=== PATIENT | male | born 1935 | race Caucasian/White ===

== ENCOUNTER 2017-07-13 11:53 | Observation (INO) ==
[2017-07-13 12:32] LABS: Basophils % 0.8 %; Eosinophils # 0.2 K/mcL (0.0-0.6); Eosinophils % 3.3 %; Hematocrit 43.1 % (37.5-50.1); Hemoglobin 14.6 g/dL (12.9-16.9); Immature Granulocytes % 0.6 % (0-4); Lymphocytes % 40.9 %; Mean Corpuscular HGB Conc 33.9 g/dL (31.6-35.5); Mean Corpuscular Hemoglobin 31.9 pg (28.0-33.3); Mean Corpuscular Volume 94.1 fL (83.0-100.0); Mean Platelet Volume 9.3 fL (9.4-12.4); Monocytes # 0.6 K/mcL (0.0-1.3); Monocytes % 13.1 %; Platelet Count 143 K/mcL (140-400); Red Blood Count 4.58 M/mcL (4.19-5.50); Red Cell Distribution Width 13.6 % (11.5-14.5); Segmented Neutrophils % 41.3 %
[2017-07-13] MEDS ORDERED: Aspirin 325 MG TABLET PO ONE (12:38)
[2017-07-13 12:41] LABS: BUN/Creatinine Ratio 10 (6-26); Blood Urea Nitrogen 12 mg/dL (8-26); Calcium 9.6 mg/dL (8.6-10.8); Carbon Dioxide 26 mEq/L (19-29); Chloride 101 mEq/L (98-109); Glucose 192 mg/dL (70-99); Osmolality,Calculated 287 (280-300); Potassium 4.6 mEq/L (3.5-4.5); Sodium 136 mEq/L (136-145); eGFR For African Americans > 60 (> 60); eGFR For Non-African Americans 56 (> 60)
--- NOTE | 2017-07-13 13:06 | Emergency Department Note ---
Disposition Clinical Impression: Chest pain Qualifiers: Chest pain type: unspecified Qualified Code(s): R07.9 - Chest pain, unspecified Disposition: Admitted As Inpatient Condition: Undetermined Referrals: NONE,PCP [Non-Partnered Physician] - Forms: ED Satisfaction Letter Time of Disposition: 13:31 Chest Pain HPI - General Chief Complaint: ED Chest Pain Stated Complaint: chest pain Time Seen by Provider: 07/13/17 12:23 Source: patient, family Mode of arrival: ambulatory Limitations: no limitations Vital Signs Reviewed: Yes Nursing Notes Reviewed: Yes - History of Present Illness HPI Narrative: 81-year-old male with history of bipolar disorder arrives to [facility] emergency department with complaint of right-sided chest discomfort. The patient states this started roughly 1 day ago and has been intermittent. He has no associated symptoms with it. The patient states the pain does not radiate anywhere else. The patient denies any shortness of breath , nausea, jaw pain, right upper extremity or left upper surety pain. The patient states that he was sitting on his couch when it started. He describes it as a little bit of an achy sensation. He states it is a been intermittent as well. The patient denies any other complaints at this time. No previous history of TN, no hypertension, no hyperlipidemia, no diabetes, nonsmoker. Pt complaint: chest pain Onset (ago): day(s) (1) Duration: intermittent Onset: during rest Pain Location: right chest Severity: mild Severity scale (1-10): 3 Quality: aching Pain Radiation: none Improves with: nothing Worsens with: nothing Associated symptoms: Denies: nausea, vomiting, diaphoresis, dyspnea, syncope, palpitations, fever, cough, leg swelling Treatments prior to arrival chest pain: none - Related Data On Oral Contraceptives: No Home Medications Medication Instructions Recorded Confirmed Quetiapine Fumarate [Seroquel] 400 mg PO BID 04/08/15 05/10/15 Divalproex (24 HR) [Depakote ER 750 mg PO HS 05/10/15 05/10/15 (24 HR)] Allergies Allergy/AdvReac Type Severity Reaction Status Date / Time acetaminophen [From Tylenol] Allergy Rash Verified 04/08/15 16:22 All systems ED: reviewed and negative except as stated. Constitutional: Denies: fever, chills, weakness ENT ED: Denies: congestion Cardiovascular: Reports: chest pain. Denies: edema, syncope Respiratory: Denies: cough, dyspnea, wheezes Gastrointestinal: Denies: abdominal pain, nausea, vomiting Genitourinary: Denies: urgency, dysuria Musculoskeletal: Denies: back pain, neck pain, arthralgia, myalgia Integumentary: Denies: rash Neurological: Denies: headache, weakness, confusion Chest Pain PMH - Past Medical History Medical history: Reports: no medical history Surgical history: Reports: appendectomy, cholecystectomy Psychiatric history: Reports: bipolar, schizophrenia - Social History Smoking Status: Never smoker Alcohol use: Reports: none Drug use: Reports: none Physical Exam - General Limitations: no limitations General appearance: alert, in no apparent distress - Head Head exam: atraumatic, normocephalic, normal inspection - Eye Eye exam: Present: normal appearance, PERRL, EOMI - ENT ENT exam: normal exam, normal oropharynx, mucous membranes moist - Neck Neck exam: Present: normal inspection, full ROM, trachea midline - Chest Chest inspection: Present: normal inspection, symmetric chest wall rise - Respiratory Respiratory exam: Present: normal lung sounds bilaterally - Cardiovascular Cardiovascular exam: Present: regular rate, normal rhythm, normal heart sounds - Abdominal Exam Abdominal exam: Present: soft, Non-Tender. Absent: tenderness, distention, guarding, rebound, rigidity - Extremities Exam Extremities exam: Present: normal inspection, full ROM. Absent: tenderness, pedal edema - Neurological Exam Neurological exam: Present: alert, oriented X3, CN II-XII intact, normal gait - Expanded Neurological Exam Coma Scale Eye Opening: Spontaneous Coma Scale Motor Response: Obeys Commands Coma Scale Verbal Response: Oriented Coma Scale Total: 15 Course Vital Signs Temperature 98.3 F 07/13/17 11:55 Pulse Rate 76 07/13/17 11:55 Respiratory Rate 20 07/13/17 11:55 Blood Pressure 145/84 07/13/17 11:55 O2 Sat by Pulse Oximetry 98 07/13/17 11:55 Temperature 98.3 F 07/13/17 11:55 Pulse Rate 67 07/13/17 12:43 Respiratory Rate 16 07/13/17 12:43 Blood Pressure 150/84 07/13/17 12:43 O2 Sat by Pulse Oximetry 96 07/13/17 12:43 Oxygen Delivery Oxygen Delivery Room Air Chest Pain - MDM Narrative Medical decision making narrative: Workup in the emergency department demonstrates no acute process. I am concerned about the patient's chest pain as it was relieved with nitroglycerin. He had a pretty good story about what is going on and I will admit the patient to the hospitalist service for ACS rule out. The patient was made aware and agrees to plan. Accepted by Dr. Streeter. - Lab Data Lab results reviewed: Yes I reviewed the patient's lab results. Result diagrams: 07/13/17 12:21 07/13/17 12:21 Lab Results 07/13/17 07/13/17 07/13/17 Range/Units 12:21 12:21 12:21 WBC 4.8 (4.3-11.1) K/mcL RBC 4.58 (4.19-5.50) M/mcL Hgb 14.6 (12.9-16.9) g/dL Hct 43.1 (37.5-50.1) % MCV 94.1 (83.0-100.0) fL MCH 31.9 (28.0-33.3) pg MCHC 33.9 (31.6-35.5) g/dL RDW 13.6 (11.5-14.5) % Plt Count 143 (140-400) K/mcL MPV 9.3 L (9.4-12.4) fL Immature Gran % 0.6 (0-4) % Seg Neutrophils % 41.3 % Lymphocytes % 40.9 % Monocytes % 13.1 % Eosinophils % 3.3 % Basophils % 0.8 % Neutrophils # 2.0 (1.6-8.9) K/mcL Lymphocytes # 2.0 (0.6-4.6) K/mcL Monocytes # 0.6 (0.0-1.3) K/mcL Eosinophils # 0.2 (0.0-0.6) K/mcL Basophils # 0.0 (0.0-0.2) K/mcL Sodium 136 (136-145) mEq/L Potassium 4.6 H (3.5-4.5) mEq/L Chloride 101 (98-109) mEq/L Carbon Dioxide 26 (19-29) mEq/L BUN 12 (8-26) mg/dL Creatinine 1.24 (0.72-1.25) mg/dL Est GFR ( Amer) > 60 (> 60) Est GFR (Non-Af Amer) 56 L (> 60) BUN/Creatinine Ratio 10 (6-26) Glucose 192 H (70-99) mg/dL Calculated Osmolality 287 (280-300) Calcium 9.6 (8.6-10.8) mg/dL Troponin I 0.01 (0-0.03) ng/mL B-Natriuretic Peptide (0-100) pg/mL 07/13/17 Range/Units 12:21 WBC (4.3-11.1) K/mcL RBC (4.19-5.50) M/mcL Hgb (12.9-16.9) g/dL Hct (37.5-50.1) % MCV (83.0-100.0) fL MCH (28.0-33.3) pg MCHC (31.6-35.5) g/dL RDW (11.5-14.5) % Plt Count (140-400) K/mcL MPV (9.4-12.4) fL Immature Gran % (0-4) % Seg Neutrophils % % Lymphocytes % % Monocytes % % Eosinophils % % Basophils % % Neutrophils # (1.6-8.9) K/mcL Lymphocytes # (0.6-4.6) K/mcL Monocytes # (0.0-1.3) K/mcL Eosinophils # (0.0-0.6) K/mcL Basophils # (0.0-0.2) K/mcL Sodium (136-145) mEq/L Potassium (3.5-4.5) mEq/L Chloride (98-109) mEq/L Carbon Dioxide (19-29) mEq/L BUN (8-26) mg/dL Creatinine (0.72-1.25) mg/dL Est GFR ( Amer) (> 60) Est GFR (Non-Af Amer) (> 60) BUN/Creatinine Ratio (6-26) Glucose (70-99) mg/dL Calculated Osmolality (280-300) Calcium (8.6-10.8) mg/dL Troponin I (0-0.03) ng/mL B-Natriuretic Peptide < 10 (0-100) pg/mL - Radiology Data Radiology results reviewed: Yes I reviewed the patient's radiology results. - EKG Data EKG attestation: Yes I reviewed and interpreted this EKG. EKG results narrative: Heart rate 74 bpm. WI interval 174 ms. QTC 394 ms. No sinus rhythm. No ST elevation or ST depression noted. EKG similar appearance to EKG from 2014. Heart Score - Score History: Moderately Suspicious EKG: Non Specific repolarisation Disturbance Age: Greater than 65 Risk Factors: No risk factors known Troponin: Less than normal limit HEART Score Total: 4 Attestation Statement - Attestation Attestation: I examined this patient and my medical decision-making was reviewed with the Resident Physician, Dr. Braga. I agree with the documented findings, disposition and treatment plan as described except to the extent set forth below. Patient is a 81-year-old white male with a history of bipolar disorder who presents to the emergency department today with a one-day history of intermittent gradually worsening right-sided chest discomfort. Patient states the pain radiates into his right shoulder and denies any other associated symptoms with this pain. Patient states actually began last night has been intermittent, kept him awake off and on throughout the night, and then worsened significantly while he was in [place] this morning. Patient has never had chest pain in the past denies any cardiac history or testing. I agree with the patient's physical exam findings as documented. Vital signs are stable. EKG shows nonspecific changes in the inferior leads. No significant change from prior EKG in system. Labs including troponin were all within normal limits, a chest x-ray was unremarkable, and patient is pain-free after aspirin and nitroglycerin. Patient 's heart score equals 4, I feel patient would benefit from hospitalization for further evaluation and management. Case was discussed with the hospitalist who accepted the patient for admission.
[2017-07-13] MEDS: Nitroglycerin 0.4 MG TAB.SUBL SL PRN ×2 (13:15→13:26)
--- NOTE | 2017-07-13 13:48 | Internal Med History&Physical ---
Date of Encounter: 07/13/17 Time of Encounter: 13:45 Assessment and Plan (1) Hyperlipidemia Current visit: Yes Status: Chronic chrnic will start on lipitor Qualifiers: Hyperlipidemia type: pure hypercholesterolemia Qualified Code(s): E78.00 - Pure hypercholesterolemia, unspecified; E78.0 - Pure hypercholesterolemia (2) Schizophrenia Current visit: Yes Status: Chronic chronic will resume home meds Qualifiers: Schizophrenia type: unspecified Qualified Code(s): F20.9 - Schizophrenia, unspecified (3) Bipolar 1 disorder Current visit: Yes Status: Chronic chronic resume mhome meds (4) Chest pain Current visit: Yes Status: Acute chest pain ekg and troponin so far negative echo and nuclear stress in am Qualifiers: Chest pain type: unspecified Qualified Code(s): R07.9 - Chest pain, unspecified Internal Medicine - H&P: HPI Chief complaint: chest pain Admitted From: Emergency Dept Plans for Post Hospital Care: Home History of present illness: Mr. Hong is a 81 year old male Patient with history of bipolar disorder, schizophrenia, high cholesterol, previous ER evaluation for psychiatric issues. Patient presented to the emergency room with symptoms of right-sided chest pain describes this chest pain started yesterday . says kkept him awake through the night . started again this morning and taken to the emergency room. No radiation mostly on the right side no shortness of breath no palpitationb no prior cardiac event history. EKG in the ER is normal troponin so far is negative Past Med Surg Social Fam HX - Past Medical History Medical history: hyperlipidemia Psychiatric history: bipolar, schizophrenia - Past Surgical History Surgical History: appendectomy, cholecystectomy - Social History Smoking Status: Never smoker Smokeless Tobacco Status: No Alcohol use: none Drug use: none Internal Medicine - H&P: Meds Quetiapine Fumarate [Seroquel] 400 mg PO HS 04/08/15 [History] Divalproex (24 HR) [Depakote ER (24 HR)] 250 mg PO BID 05/10/15 [History] Aspirin 81 mg PO DAILY 07/13/17 [History] Benztropine [Cogentin] 0.5 mg PO HS 07/13/17 [History] Calcium Carbonate [Calcium] 500 mg PO DAILY 07/13/17 [History] Docusate Sodium [Dok] 100 mg PO DAILY 07/13/17 [History] Mv,Ca,Fe,Min/FA/Guarana/Caff [One Daily Tablet] 1 tab PO DAILY 07/13/17 [History ] [place]-3/Dha/Epa/Fish Oil [Fish Oil 1,000 mg Softgel] 1 tab PO DAILY 07/13/17 [ History] 3 Allergy/AdvReac Type Severity Reaction Status Date / Time acetaminophen [From Tylenol] Allergy Rash Verified 04/08/15 16:22 risperidone [From Risperdal] AdvReac Joint Pain Verified 07/13/17 13:41 All Systems PM: A 10-system review of systems was performed and is negative for pertinent findings except as documented above in the HPI. - Constitutional Constitutional: no chills, no fever(s), no night sweats - EENT Eyes: no change in vision, no discharge, no pain, no photophobia Nose, mouth and throat: no dysphagia, no nasal discharge, no neck pain, no sore throat - Cardiovascular Cardiovascular ROS IM: no chest pain, no diaphoresis, no dyspnea, no lightheadedness, no palpitations, no syncope - Respiratory Respiratory: no cough, no dyspnea, no wheezing, no excessive phlegm production - Gastrointestinal Gastrointestinal: no abdominal pain, no diarrhea, no hematemesis, no hematochezia, no melena, no nausea, no vomiting - Musculoskeletal Musculoskeletal ROS IM: no numbness, no tingling - Constitutional Vitals: Temp Pulse Resp BP Pulse Ox 98.3 F 68 16 110/66 95 07/13/17 11:55 07/13/17 13:34 07/13/17 13:34 07/13/17 13:34 07/13/17 13:34 - Eye Eye exam: Present: PERRL, conjuntiva pink, sclera anicteric Pupils: Present: PERRL - Neck Neck exam general surgery: Present: supple, trachea midline. Absent: lymphadenopathy - Respiratory Respiratory exam: Present: CTAB. Absent: accessory muscle use, rales, rhonchi, wheezes - Cardiovascular Cardiovascular exam: Present: RRR, +S1, +S2. Absent: diastolic murmur, gallop, rubs, systolic murmur - GI/Abdominal GI/Abdominal exam: Present: normal bowel sounds, soft, no peritoneal signs. Absent: distended, tenderness - Extremities Exam Extremities exam: Present: warm, radial pulses palpable and symmetrical. Absent : calf tenderness, cyanotic, pedal edema - Neurological Exam Neurological exam: Present: CN II-XII intact, oriented X3, no focal deficits. Absent: pronater drift, facial droop, speech deficit Internal Med - H&P Results - Labs CBC & Chem 7: 07/13/17 12:21 07/13/17 12:21 Labs: Short CBC 07/13/17 Range/Units 12:21 WBC 4.8 (4.3-11.1) K/mcL Hgb 14.6 (12.9-16.9) g/dL Hct 43.1 (37.5-50.1) % Plt Count 143 (140-400) K/mcL Neutrophils # 2.0 (1.6-8.9) K/mcL BMP 07/13/17 12:21 Sodium 136 Potassium 4.6 H Chloride 101 Carbon Dioxide 26 BUN 12 Creatinine 1.24 Glucose 192 H Calcium 9.6 Cardiac Enzymes 07/13/17 Range/Units 12:21 Troponin I 0.01 (0-0.03) ng/mL - Impressions ITS Impressions Chest X-Ray 07/13/17 12:03 IMPRESSION: Negative portable study. D/ / Brianna Cardona Cha, MD / Brianna Cardona Cha, MD Interpreting Provider: Brianna Cardona Cha, MD
[2017-07-13] MEDS ORDERED: Naloxone 0.4 MG/ML INJ IVP PRN (13:58)
[2017-07-13] MEDS ORDERED: Ondansetron 4 MG/2 ML VIAL IVP PRN (13:58)
[2017-07-13] MEDS ORDERED: *HR* Morphine 2 MG/ML SYRINGE IVP PRN (13:58)
[2017-07-13] MEDS: 0.9 % Sodium Chloride 1,000 ML IVC SCH (16:03)
[2017-07-13] MEDS: Divalproex (24 HR) 250 MG TABLET PO SCH (20:07)
[2017-07-13] MEDS ORDERED: NON-FORMULARY MEDICATION 1 EACH EACH (Quetiapine Fumarate [Seroquel] 400 MG) PO SCH (21:00)
[2017-07-14 03:17] LABS: Alanine Aminotransferase 81 Units/L (0-55); Albumin/Globulin Ratio 0.8 (1.1-2.2); Alkaline Phosphatase 76 Units/L (38-126); Aspartate Amino Transferase 41 Units/L (5-34); BUN/Creatinine Ratio 12 (6-26); Bilirubin,Total 0.5 mg/dL (0.2-1.2); Blood Urea Nitrogen 13 mg/dL (8-26); Carbon Dioxide 27 mEq/L (19-29); Chloride 105 mEq/L (98-109); Globulin 3.7 g/dL (2.4-3.5); Glucose 172 mg/dL (70-99); Osmolality,Calculated 292 (280-300); Potassium 4.7 mEq/L (3.5-4.5); Sodium 139 mEq/L (136-145); Total Protein 6.7 g/dL (6.0-8.3); eGFR For African Americans > 60 (> 60); eGFR For Non-African Americans > 60 (> 60)
[2017-07-14] MEDS: 0.9 % Sodium Chloride 1,000 ML IVC SCH (04:57)
[2017-07-14] MEDS ORDERED: Regadenoson 0.4 MG/5 ML SYRINGE IVP ONE (06:38)
[2017-07-14] MEDS ORDERED: (Omega-3/Dha/Epa/Fish Oil [Fish Oil 1,000 Mg Softgel] PO SCH (09:00)
[2017-07-14] MEDS ORDERED: Aspirin 81 MG TAB.CHEW PO SCH (09:00)
[2017-07-14] MEDS ORDERED: Multivit/Ca/Min/Fe/FA 1 TAB TABLET PO SCH (09:00)
[2017-07-14] MEDS: Divalproex (24 HR) 250 MG TABLET PO SCH (09:11)
[2017-07-14 11:26] VITALS: BP 143/88
--- NOTE | 2017-07-14 13:30 | Discharge Summary ---
Date of Encounter: 07/14/17 Time of Encounter: 13:45 - Discharge Diagnosis (1) Chest pain Priority: Primary Status: Resolved Qualifiers: Chest pain type: unspecified Qualified Code(s): R07.9 - Chest pain, unspecified (2) Bipolar 1 disorder Priority: Secondary Status: Chronic (3) Hyperlipidemia Priority: Secondary Status: Chronic Qualifiers: Hyperlipidemia type: pure hypercholesterolemia Qualified Code(s): E78.00 - Pure hypercholesterolemia, unspecified; E78.0 - Pure hypercholesterolemia (4) Schizophrenia Priority: Secondary Status: Chronic Qualifiers: Schizophrenia type: unspecified Qualified Code(s): F20.9 - Schizophrenia, unspecified - Discharge Medications Home Medications: Quetiapine Fumarate [Seroquel] 400 mg PO HS 04/08/15 [History] Divalproex (24 HR) [Depakote ER (24 HR)] 250 mg PO BID 05/10/15 [History] Aspirin 81 mg PO DAILY 07/13/17 [History] Benztropine [Cogentin] 0.5 mg PO HS 07/13/17 [History] Calcium Carbonate [Calcium] 500 mg PO DAILY 07/13/17 [History] Docusate Sodium [Dok] 100 mg PO DAILY 07/13/17 [History] Mv,Ca,Fe,Min/FA/Guarana/Caff [One Daily Tablet] 1 tab PO DAILY 07/13/17 [History ] [place]-3/Dha/Epa/Fish Oil [Fish Oil 1,000 mg Softgel] 1 tab PO DAILY 07/13/17 [ History] Allergies/Adverse Reactions: 3 Allergy/AdvReac Type Severity Reaction Status Date / Time acetaminophen [From Tylenol] Allergy Rash Verified 04/08/15 16:22 risperidone [From Risperdal] AdvReac Joint Pain Verified 07/13/17 13:41 Procedures/tests Complete & Pending: Procedures Performed prior 72 hours Category Date Time Status NM cecil perf SPECT multi [NM] Routine Exams 07/13/17 14:04 Taken EV echocardiogram Routine Y 07/14/17 14:03 Completed SP pharm nuclear stress Routine Y 07/14/17 14:03 Completed Date of admission: 07/13/17 14:01 Primary care physician: Kamryn Davison CNP Discharging clinician: Dolly Rodrigez Anticipated date of discharge: 07/14/17 - Patient Status Disposition: Home, Self-Care Condition: Good Functional capacity at discharge: independent ambulation Overall status at discharge: patient is back to baseline - Discharge Instructions Follow Up With: Kamryn Davison, YOEL [Primary Care Provider] - 07/22/17 3:30 pm Additional Instructions: Please follow up with your primary care physician within one week after your discharge from the hospital. Please resume all other medications as prescribed by your primary care physician. - Diet and Activity Activity: increase activity as tolerated Diet: low fat, low cholesterol, low salt diet Hospital course: Mr. Hong is a 81 year old male with PMH of bipolar disorder, schizophrenia, hld admitted for chest pain. She underwent nuclear stress test which was negative for ischemic perfusion defect. Upon further questioning, pt reported of recently lifting a heavy couch and has been having right sided chest pain that is reproducible with palpation. He is currently chest pain free. Nuclear stress test negative for any ischemia. He is stable for discharge. Pt to follow up with primary care physician after discharge. - Time Spent with Patient Total time spent providing and/or coordinating discharge services: Less than 30 minutes - Constitutional Vitals: Temp Pulse Resp BP Pulse Ox 97.9 F 62 16 143/88 96 07/14/17 11:22 07/14/17 11:22 07/14/17 11:22 07/14/17 11:22 07/14/17 11:22 General appearance: Present: cooperative, A&O X 3, pleasant, no acute distress, answers questions appropriately - Head Head exam: Present: atraumatic, normocephalic - Eye Eye exam: Present: conjuntiva pink, sclera anicteric - Respiratory Respiratory exam: Present: CTAB. Absent: accessory muscle use, rales, rhonchi, wheezes - Cardiovascular Cardiovascular exam: Present: RRR, +S1, +S2. Absent: diastolic murmur, gallop, rubs, systolic murmur - GI/Abdominal GI/Abdominal exam: Present: normal bowel sounds, soft, no peritoneal signs. Absent: distended, tenderness - Extremities Exam Extremities exam: Present: warm, radial pulses palpable and symmetrical. Absent : calf tenderness, cyanotic, pedal edema - Neurological Exam Neurological exam: Present: alert, oriented X3
--- NOTE | 2017-07-15 10:01 | Electrocardiograph Report ---
[place] [id number] Test Date: 2017-07-13 Pat Name: Bolivar Hong Department: 102 Room: 3B12 Gender: M Law Writer: : 1935 Requested By: Genesis Larsen Order Number: [id number] Reading MD: Ammon Gabriel DO Measurements Intervals [place] Rate: 74 P: 44 NM: 174 QRS: 65 QRSD: 93 T: 71 QT: 367 QTc: 394 Interpretive Statements SINUS RHYTHM Electronically Signed On 07-15-2017 9:59:17 EST by Ammon Gabriel DO
== END 2017-07-14 14:41 | disposition home or self-care (01) ==
LOC: 3BNU 11:53 → EMEROO 11:53 → 3BNU 14:46
PROVIDERS: ADMIT Internal Medicine Cardiovascular Disease; ATTEND Registered Nurse